=== PATIENT | male | born 1995 | race African-American/Black ===

== ENCOUNTER 2021-03-15 14:16 | Outpatient (CLI) | payer BC, SELFPAY ==
--- NOTE | ~2021-03-15 | XR_ITS ---
EXAMINATION: XR knee RT 3V DATE: 03/15/2021 14:46 INDICATION: Right knee pain. TECHNIQUE: 3 views of right knee were obtained. COMPARISON: Right knee radiographs 03/28/2014 FINDINGS: Bone alignment is normal. No fracture. There are screws from anterior cruciate ligament rec onstruction. The joint spaces are normal. There is a 4 mm loose body in the intercondylar notch. Ther e is a small knee joint effusion. IMPRESSION: 1. Small knee joint effusion with loose body. Reviewed, dictated and finalized at location A.
== END 2021-03-15 14:17 | disposition home or self-care (01) ==
PROVIDERS: PCP Physician Assistant; Visit Provider Physician Assistant
DX: M25.561 Pain in right knee (principal); M25.461 Effusion, right knee
CPT/HCPCS: 73562

== ENCOUNTER 2025-06-01 05:08 | Emergency (ER) | payer OTHER, MEDICAID, SELFPAY ==
--- NOTE | ~2025-06-01 | XR_ITS ---
Examination: XR elbow RT min 3V Clinical History: R elbow injury Comparison: None Technique: 4 views right elbow Findings/impression: 1. No fracture or dislocation. Reviewed, dictated and finalized at location R. [employer]
[2025-06-01 05:15] VITALS: BP 139/81; PULSE 78; RESP 16; O2SAT 100
--- NOTE | 2025-06-01 06:12 | ED_ITS ---
HPI - Extremity Injury (Upper) General Chief Complaint: Extremity Injury, Upper Stated Complaint: Work Injury Time Seen by Provider: 06/01/25 05:16 Source: patient Mode of arrival: ambulatory Limitations: no limitations History of Present Illness HPI narrative: Left-hand dominant Patient presents with concern a work injury. Was lifting a box when he felt a pinch in his right outer elbow with sharp pain radiating down the forearm but particularly at the 4th finger. Pain is 5/10 in severity. Denies any paresthesias. Not on anticoagulation. Has taken no medications prior to arrival. Related Data Allergies Allergy/AdvReac Type Severity Reaction Status Date / Time No Known Allergies Allergy Unknown Verified 03/28/14 16:52 COUNTS INCLUDE 234 BEDS AT THE [facility] Past Medical History Medical History Left hand dominant Social History Social History Occupation/Education: occupation Exam Narrative: GENERAL: Well-appearing, well-nourished, and in no acute distress. HEAD: Normocephalic, atraumatic. EYES: Non injected, non icteric ENT: Nares clear, no rhinorrhea or epistaxis. Gross auditory acuity intact. NECK: Supple. No meningismus. CHEST: Speaking in full sentences. No respiratory distress. HEART: Regular rate and rhythm. . ABDOMEN: Soft, nondistended. Not peritoneal EXTREMITIES: Ice over R elbow has made skin cool ; reports pain at the epicondyle. No edema. No obvious bony deformity. Able to move wrist and fingers. SKIN: Dry, no rash. Particularly, no vesicular lesions, erythema, laceration. NEURO: No focal deficits. Alert and oriented. Answering questions. Following commands. Normal speech without aphasia or dysarthria. Sensation intact in RUE. PSYCH: Normal mood and affect. Course Vital Signs Vital signs: Vital Signs Pulse Rate 78 06/01/25 05:15 Respiratory Rate 16 06/01/25 05:15 Blood Pressure 139/81 06/01/25 05:15 Pulse Oximetry 100 06/01/25 05:15 Oxygen Delivery Room Air 06/01/25 05:15 Temperature 98.7 F 06/01/25 06:19 Pulse Rate 68 06/01/25 06:36 Respiratory Rate 16 06/01/25 06:36 Blood Pressure 126/88 06/01/25 06:36 Pulse Oximetry 100 06/01/25 06:36 Oxygen Delivery Room Air 06/01/25 05:15 MDM - Extremity Injury (Upper) MDM Narrative Medical decision making narrative: Left-hand dominant male presents with concern for right elbow pain described as a pinching sensation with sharp pain radiating distally particularly into the 4th digit. In the emergency department they are afebrile with vital signs within normal limits (temp not initially documented but charted later). Distribution consistent with cubital tunnel syndrome. Given ketorolac in the emergency department. Prescribed to options for durable medical equipment but no compression sleeve/splint. Advised to take NSAIDs and modified activity and follow-up with primary care physician versus orthopedic surgery. Provided contact referrals for both. Otherwise stable for discharge. Differential Diagnosis Differential diagnosis: Likely other (fracture, dislocation, neuropathy) Imaging Data Attestation: I personally reviewed and interpreted this imaging study as follows: My impression: No obvious fracture/dislocation on my independent interpretation. No posterior/anterior fat pad/sail sign. Radiologist's impression: Findings/impression: 1. No fracture or dislocation. Discharge Plan Discharge Clinical Impression: Cubital tunnel syndrome on right Patient Disposition: Home Condition: Stable Instructions: Antibiotic Form, Peripheral Neuropathy (ED) Additional Instructions: You are experiencing cubital tunnel syndrome which is an ulnar neuropathy. Use the NSAIDs Activity modification. Can use the Splint/compression sleeve to limit elbow flexion to 45 to 90 degrees. Follow up with your primary care physician. If you do not have 1 the name of the doctors listed below. Alternatively, the name of an orthopedic surgeon is listed below. Patient Language: Latvian Prescriptions: New (DME) Elbow Compression Sleeve Misc See Rx Instructions .Route Qty: 1 0RF Rx Instructions: As directed ibuprofen 600 mg tablet 600 mg PO TID PRN (Reason: pain) Qty: 30 0RF (DME) Elbow Strap Misc See Rx Instructions .Route Qty: 1 0RF Rx Instructions: As directed Follow-up/Referrals: PHYSICIAN,[facility] [Primary Care Provider, Internal Medicine] Mikey Draper MD [Physician, Family Practice] Mark Salcedo MD [Physician, Orthopedics] Stand Alone Forms: Work/School Release IP
[2025-06-01 06:19] VITALS: PULSE 78; TEMP 37.1; O2SAT 100
[2025-06-01] MEDS: KETOROLAC 30 MG/ML VIAL (*BKC) 15 MG IM (06:32)
[2025-06-01 06:36] VITALS: BP 126/88; PULSE 68; RESP 16; O2SAT 100
== END 2025-06-01 07:15 | disposition home or self-care (01) ==
PROVIDERS: Emergency Provider Student in an Organized Health Care Education/Training Program
DX: G56.21 Lesion of ulnar nerve, right upper limb (principal)
CPT/HCPCS: 73080; 96372; 99283; J1885